=== PATIENT | female | born 1975 | race Caucasian/White ===

== ENCOUNTER 2017-09-20 05:27 | Day surgery (SDC) | payer MEDICAID ==
[2017-09-17 14:26] LABS: BASOPHILS # (AUTO) 0.1 X10'3 (0-0.2); BASOPHILS % (AUTO) 0.8 % (0-1); EOSINOPHILS # (AUTO) 0.1 X10'3 (0-0.9); EOSINOPHILS % (AUTO) 1.5 % (0-6); LYMPHOCYTES # (AUTO) 2.1 X10'3 (1.1-4.8); LYMPHOCYTES % (AUTO) 26.7 % (21-51); MEAN CORPUSCULAR HEMOGLOBIN 29.9 PG (27.0-31.0); MEAN CORPUSCULAR HGB CONC 34.5 % (33.0-36.5); MEAN CORPUSCULAR VOLUME 86.7 FL (78-98); MEAN PLATELET VOLUME 7.2 FL (7.4-10.4); MONOCYTES # (AUTO) 0.4 X10'3 (0-0.9); MONOCYTES % (AUTO) 4.4 % (2-12); NEUTROPHILS # (AUTO) 5.3 X10'3 (1.8-7.7); NEUTROPHILS % (AUTO) 66.6 % (42-75); PRE OP HEMATOCRIT 42.8 % (35.0-45.0); PRE OP HEMOGLOBIN 14.7 g/dL (12.0-16.0); PRE OP PLATELET COUNT 278 X10'3 (140-440); RED BLOOD COUNT 4.94 X10'6 (4.20-5.60); RED CELL DISTRIBUTION WIDTH 13.2 % (11.5-14.5)
[2017-09-17 14:45] LABS: HCG SERUM QL NEGATIVE
[~2017-09-20] VITALS: Ht 162.6 cm; Wt 119.0 kg
[2017-09-20] VITALS (8 sets, daily range): BP systolic 118–138; BP diastolic 63–88
[~2017-09-20 05:27] MED LIST: ASTHMA INHALER; CINN500C16; DIPH25CA83 PO; FLUO20CA39 PO; FURO80TA87 PO; LORA1TAB PO; MELO-100 PO; SUMA25TA35 PO; TOPI25TA15 PO; ringers solution, lacted 1,000 ML IV SCH
[2017-09-20] MEDS ORDERED: cefazolin/dext.iso 2gm/50ml 50 ML IV ONE (05:30)
[2017-09-20] MEDS ORDERED: famotidine 20mg tablet PO ONE (05:30)
[2017-09-20] MEDS ORDERED: LIDOcaine 1% (10mg/ml) 2ml vial ONE (05:45)
[2017-09-20] MEDS ORDERED: BUPIVAcaine/PF 2.5 mg/ml (0.25%) 30ml vial ONE (06:36)
[2017-09-20] MEDS ORDERED: epiNEPHrine 1 mg/ml inj ONE (06:36)
[2017-09-20] MEDS ORDERED: fentaNYL/PF 50MCG/1 ML 2ML syringe ONE (07:45)
[2017-09-20] MEDS ORDERED: midazolam 2 mg/2 ml injection ONE (07:46)
[2017-09-20] MEDS ORDERED: succinylcholine 20mg/ml inj IV ONE (07:47)
[2017-09-20] MEDS ORDERED: LIDOcaine 2% (20mg/ml) 5ml vial ONE (07:47)
[2017-09-20] MEDS ORDERED: propofol inj 20 ML IV ONE (07:47)
[2017-09-20] MEDS ORDERED: sevoflurane 250ml liquid IH ONE (07:53)
[2017-09-20] MEDS ORDERED: rocuronium 10mg/ml inj IV ONE (08:08)
[2017-09-20] MEDS ORDERED: neostigmine methylsulfate 1 MG/ML 10ml vial ONE (08:26)
[2017-09-20] MEDS ORDERED: glycopyrrolate 0.2mg/ml inj ONE (08:26)
[2017-09-20] MEDS ORDERED: ringers solution, lacted 1,000 ML IV SCH (08:31)
[2017-09-20] MEDS ORDERED: proCHLORperazine 10 MG/2 ml inj IV PRN (08:35)
[2017-09-20] MEDS ORDERED: meperidine/PF 50mg/ml syringe IV PRN ×3 (08:35)
[2017-09-20] MEDS ORDERED: ondansetron/PF 4mg/2ml inj IV PRN (08:35)
[2017-09-20] MEDS ORDERED: morphine 4 MG/ML inj SYRINge IV PRN ×2 (08:35)
== END 2017-09-20 09:39 | disposition home or self-care (01) ==
LOC: PAS 05:27
PROVIDERS: ATTEND Obstetrics & Gynecology
DX: Z30.2 Encounter for sterilization (principal); N85.2 Hypertrophy of uterus; E66.9 Obesity, unspecified; K21.9 Gastro-esophageal reflux disease without esophagitis; J45.909 Unspecified asthma, uncomplicated; F41.9 Anxiety disorder, unspecified; H91.90 Unspecified hearing loss, unspecified ear; F17.210 Nicotine dependence, cigarettes, uncomplicated; Z90.49 Acquired absence of other specified parts of digestive tract; Z68.42 Body mass index [BMI] 45.0-49.9, adult; Z79.899 Other long term (current) drug therapy
CPT/HCPCS: 36415; 58670; 84703; 85025; A6258; A6402; J0171; J0330; J0690; J2001; J2175; J2250; J2270; J2704; J2710; J3010; J3490; J7120; A7000